=== PATIENT | male | born 1990 | race Caucasian/White ===

== ENCOUNTER 2016-03-02 17:09 | Emergency (ER) | payer OTHER ==
[~2016-03-02] VITALS: Ht 180.3 cm; Wt 70.8 kg
[2016-03-02 17:11] VITALS: TEMP 36.8; Ht 180.3 cm; Wt 70.8 kg
[2016-03-02] MEDS ORDERED: ONDANSETRON INJ 2 MG/ML 2 ML VIAL IV STA ×2 (17:25)
[2016-03-02] MEDS ORDERED: SODIUM CHLORIDE 0.9% 1000ML 1,000 ML IV STA ×2 (17:25)
[2016-03-02] MEDS ORDERED: KETOROLAC TROMETHAMINE 30 MG/ML VIAL IV STA (17:25)
[2016-03-02] MEDS ORDERED: PROCHLORPERAZINE 5 MG/ML 2 ML VIAL IV STA (17:25)
--- NOTE | 2016-03-02 17:28 | EMERGENCY ROOM VISIT NOTE ---
History Report prepared by Hannah: Pallavi Baez Under the Supervision of: Dr. Taisha Joy M.D. First contact with patient: 17:19 Chief Complaint: VOMITING Stated Complaint: VOMITING, SHAKES, DIZZY Nursing Triage Summary: Pt c/o "I just don't feel good, I think I have taken too much of something" Took two Hydrocodone 10mg/325 yesterday and and oxycodone/acet 10/300 at 0100. Pt states he went to sleep and "I've beel like this since I woke up. Uncontrollable puking, my urine is very orange and constant pressure in my head " Took meds for back pain. Not prescribed to him. History of Present Illness The patient is a 26 year old male who presents to the Emergency Room with complaints of multiple episodes of vomiting beginning this morning. He states that the episodes come on suddenly. The patient also experiences mild abdominal pain after an episode. He notes that he feels "spacey" and has a headache. The patient has chronic back pain and has taken hydrocodone and oxycodone yesterday and today. Source of History: patient Onset: this morning Position: other (global) Symptom Intensity: multiple Quality: other (vomiting) Timing: other (episodes) Associated Symptoms: + abdominal pain, + back pain, + headache Review of Systems See HPI for pertinent positives & negatives. A total of 10 systems reviewed and were otherwise negative. Past Medical & Surgical Medical Problems: (1) No known problems Family History Patient reports no known family medical history. Social History Smoking Status: Current Every Day Smoker Alcohol Use: occasionally Marital Status: in relationship Occupation Status: employed Current/Historical Medications Scheduled Ondasetron Odt (Zofran Odt), 4 MG SL Q6H Allergies Coded Allergies: No Known Allergies (Unverified , 03/02/16) Physical Exam Vital Signs Date Time Temp Pulse Resp B/P Pulse Ox O2 Delivery O2 Flow Rate FiO2 03/02/16 20:51 85 18 108/76 98 03/02/16 17:11 36.8 101 18 125/82 98 Room Air Physical Exam CONSTITUTIONAL: Mild to moderate distress, appears nauseous. HEENT: No icterus, moist mucous membranes NECK: No meningismus, trachea is midline. CARDIOVASCULAR: Regular rate, normal perfusion RESPIRATORY: Unlabored breathing. Clear to auscultation. GASTROINTESTINAL: Non-tender GENITOURINARY: No flank tenderness MUSCULOSKELETAL: Full range of motion NEUROLOGIC: No acute gross focal deficits. PSYCHIATRIC: Normal affect SKIN: Normal for ethnicity. Medical Decision & Procedures ER Provider Diagnostic Interpretation: CT results as stated below per my review and radiologist interpretation. CT HEAD WITHOUT CONTRAST (CT) CLINICAL HISTORY: nausea, VALLADARES COMPARISON STUDY: No previous studies for comparison. TECHNIQUE: Axial CT of the brain is performed from the vertex to the skull base. IV contrast was not administered for this examination. CT DOSE: 537.48 mGy.cm FINDINGS: No intra or extra-axial mass lesions are visualized. There is no CT evidence of acute cortical infarction. There is no evidence of midline shift. There is no acute hemorrhage. No calvarial fractures are visualized. There is no evidence of pathologic ventricular dilatation. There is no evidence of acute sinusitis IMPRESSION: Normal noncontrast head CT. Electronically signed by: Calvin Layton M.D. 03/02/2016 7:00 PM Dictated Date/Time: 03/02/2016 6:59 PM Laboratory Results 03/02/16 17:41 Red Blood Count 5.37, Mean Corpuscular Volume 84.7, Mean Corpuscular Hemoglobin 30.9, Mean Corpuscular Hemoglobin Concent 36.5, Mean Platelet Volume 10.1, Neutrophils (%) (Auto) 83.3, Lymphocytes (%) (Auto) 10.2, Monocytes (%) (Auto) 5.5, Eosinophils (%) (Auto) 0.6, Basophils (%) (Auto) 0.1, Neutrophils # (Auto) 11.79, Lymphocytes # (Auto) 1.44, Monocytes # (Auto) 0.78, Eosinophils # (Auto) 0.09, Basophils # (Auto) 0.02 03/02/16 17:41 Test 03/02/16 17:41 03/02/16 19:30 White Blood Count 14.16 K/uL (4.8-10.8) Red Blood Count 5.37 M/uL (4.7-6.1) Hemoglobin 16.6 g/dL (14.0-18.0) Hematocrit 45.5 % (42-52) Mean Corpuscular Volume 84.7 fL (80-100) Mean Corpuscular Hemoglobin 30.9 pg (25-34) Mean Corpuscular Hemoglobin Concent 36.5 g/dl (32-36) Platelet Count 232 K/uL (130-400) Mean Platelet Volume 10.1 fL (7.4-10.4) Neutrophils (%) (Auto) 83.3 % Lymphocytes (%) (Auto) 10.2 % Monocytes (%) (Auto) 5.5 % Eosinophils (%) (Auto) 0.6 % Basophils (%) (Auto) 0.1 % Neutrophils # (Auto) 11.79 K/uL (1.4-6.5) Lymphocytes # (Auto) 1.44 K/uL (1.2-3.4) Monocytes # (Auto) 0.78 K/uL (0.11-0.59) Eosinophils # (Auto) 0.09 K/uL (0-0.5) Basophils # (Auto) 0.02 K/uL (0-0.2) RDW Standard Deviation 39.2 fL (36.4-46.3) RDW Coefficient of Variation 12.8 % (11.5-14.5) Immature Granulocyte % (Auto) 0.3 % Immature Granulocyte # (Auto) 0.04 K/uL (0.00-0.02) Anion Gap 11.0 mmol/L (3-11) Est Creatinine Clear Calc Drug Dose 112.4 ml/min Estimated GFR () 121.1 Estimated GFR (Non- 104.5 BUN/Creatinine Ratio 12.4 (10-20) Calcium Level 9.3 mg/dl (8.5-10.1) Total Bilirubin 0.8 mg/dl (0.2-1) Direct Bilirubin 0.2 mg/dl (0-0.2) Aspartate Amino Transf (AST/SGOT) 15 U/L (15-37) Alanine Aminotransferase (ALT/SGPT) 20 U/L (12-78) Alkaline Phosphatase 67 U/L (45-117) Total Protein 7.9 gm/dl (6.4-8.2) Albumin 4.6 gm/dl (3.4-5.0) Lipase 74 U/L (73-393) Urine Color YELLOW Urine Appearance CLEAR (CLEAR) Urine pH >= 9.0 (4.5-7.5) Urine Specific [place] 1.013 (1.000-1.030) Urine Protein NEG (NEG) Urine Glucose (UA) NEG (NEG) Urine Ketones 1+ (NEG) Urine Occult Blood NEG (NEG) Urine Nitrite NEG (NEG) Urine Bilirubin NEG (NEG) Urine Urobilinogen NEG (NEG) Urine Leukocyte Esterase TRACE (NEG) Urine WBC (Auto) 1-5 /hpf (0-5) Urine RBC (Auto) 5-10 /hpf (0-4) Urine Hyaline Casts (Auto) 1-5 /lpf (0-5) Urine Epithelial Cells (Auto) 20-30 /lpf (0-5) Urine Bacteria (Auto) NEG (NEG) Urine Opiates Screen POS (NEG) Urine Methadone, Qualitative NEG (NEG) Urine Barbiturates NEG (NEG) Urine Phencyclidine (PCP) Level NEG (NEG) Ur Amphetamine/Methamphetamine NEG (NEG) MDMA (Ecstasy) Screen NEG (NEG) Urine Benzodiazepines Screen NEG (NEG) Urine Cocaine Metabolite NEG (NEG) Urine Marijuana (THC) POS (NEG) Labs reviewed by ED physician. Medications Administered Medications (Trade) Dose Ordered Sig/Terell Route Start Time Stop Time Status Last Admin Dose Admin Prochlorperazine Edisylate 10 mg 10 mg NOW STAT IV 03/02/16 17:25 03/02/16 17:29 DC 03/02/16 17:25 10 MG Sodium Chloride (Nss 1000ml) 1,000 ml @ 0 mls/hr Q0M STAT IV 03/02/16 17:25 03/02/16 17:29 DC 03/02/16 17:25 0 MLS/HR Ketorolac Tromethamine (Toradol Inj) 30 mg NOW STAT IV 03/02/16 17:25 03/02/16 17:30 DC 03/02/16 17:25 30 MG Ondansetron HCl 4 mg 4 mg NOW STAT IV 03/02/16 17:25 03/02/16 17:30 DC 03/02/16 17:25 4 MG Sodium Chloride (Nss 1000ml) 1,000 ml @ 0 mls/hr Q0M STAT IV 03/02/16 17:25 03/02/16 17:30 DC 03/02/16 17:25 0 MLS/HR Ondansetron HCl (ZOFRAN ODT 4MG Home Pack) 1 homepack UD ONCE PO 03/02/16 20:30 1/14/17 20:31 DC 03/02/16 20:30 1 HOMEPACK ED Course 172: Past medical records reviewed. The patient was evaluated in room C7. A complete history and physical examination was performed. 1725: Sodium Chloride 1,000 ml @ 0 mls/hr Wide Open IV, Zofran Inj 4 mg IV, Zofran Inj 4 mg IV, Toradol Inj 30 mg IV, Sodium Chloride 1,000 ml @ 0 mls/hr Wide Open IV, Compazine Inj 10 mg IV. 2030: Zofran ODT 4 mg Home Pack 1 homepack PO. 2032: Upon reexamination the patient is hemodynamically stable. I discussed results and treatment plan with the patient. He verbalizes agreement and understanding. The patient is ready for discharge. Medical Decision Differential diagnoses include but are not limited to; viral syndrome, intracranial abnormality. 18-year-old presents to the emergency room with several hours of vomiting and occasional crampy abdominal pain with feeling generally unwell. Abdomen was benign. Workup most consistent with viral syndrome or possibly withdrawal or substance abuse induced pathologies. Patient appeared well prior to discharge was given antiemetic perceptions. Impression Primary Impression: Vomiting Scribe Attestation The scribe's documentation has been prepared under my direction and personally reviewed by me in its entirety. I confirm that the note above accurately reflects all work, treatment, procedures, and medical decision making performed by me. Departure Information Dispostion Home / Self-Care Prescriptions Ondasetron Odt (ZOFRAN ODT) 4 Mg Tab 4 MG SL Q6H for Nausea, #20 TAB Prov: Taisha Joy MD 03/02/16 Referrals No Doctor, Assigned (PCP) Forms HOME CARE DOCUMENTATION FORM, IMPORTANT VISIT INFORMATION Patient Instructions My [facility], Vomiting - [facility]
[2016-03-02 18:00] LABS: BASO % 0.1 %; BASO ABS # 0.02 K/uL (0-0.2); COMPLETE YES; EOS % 0.6 %; HEMATOCRIT 45.5 % (42-52); IG% 0.3 %; LYMPH % 10.2 %; LYMPH ABS # 1.44 K/uL (1.2-3.4); MEAN CELL VOLUME 84.7 fL (80-100); MEAN CORPUSCULAR HEMOGLOBIN 30.9 pg (25-34); MEAN CORPUSCULAR HGB CONC 36.5 g/dl (32-36); MEAN PLATELET VOLUME 10.1 fL (7.4-10.4); MONO % 5.5 %; NEUT % 83.3 %; PLATELET COUNT 232 K/uL (130-400); RED BLOOD COUNT 5.37 M/uL (4.7-6.1); WHITE BLOOD COUNT 14.16 K/uL (4.8-10.8)
[2016-03-02 18:28] LABS: BUN/CREATININE RATIO 12.4 (10-20); CALCIUM 9.3 mg/dl (8.5-10.1); CREATININE 0.98 mg/dl (0.60-1.40); POTASSIUM 3.7 mmol/L (3.5-5.1)
--- NOTE | 2016-03-02 19:02 | DIAGNOSTIC IMAGING REPORT ---
CT HEAD WITHOUT CONTRAST (CT) CLINICAL HISTORY: nausea, VALLADARES COMPARISON STUDY: No previous studies for comparison. TECHNIQUE: Axial CT of the brain is performed from the vertex to the skull base. IV contrast was not administered for this examination. CT DOSE: 537.48 mGy.cm FINDINGS: No intra or extra-axial mass lesions are visualized. There is no CT evidence of acute cortical infarction. There is no evidence of midline shift. There is no acute hemorrhage. No calvarial fractures are visualized. There is no evidence of pathologic ventricular dilatation. There is no evidence of acute sinusitis IMPRESSION: Normal noncontrast head CT. Electronically signed by: Calvin Layton M.D. 03/02/2016 7:00 PM Dictated Date/Time: 03/02/2016 6:59 PM
[2016-03-02 19:59] LABS: URINE APPEARANCE CLEAR (CLEAR); URINE BILIRUBIN NEG (NEG); URINE COLOR YELLOW; URINE EPITHELIAL CELL AUTO 20-30 /lpf (0-5); URINE NITRITE NEG (NEG); URINE PH >= 9.0 (4.5-7.5); URINE SPECIFIC GRAVITY 1.013 (1.000-1.030); UROBILINOGEN NEG (NEG)
[2016-03-02 20:01] LABS: MANUAL MICROSCOPIC REQUIRED? NO; REVIEW REQ? NO
[2016-03-02 20:20] LABS: BENZODIAZEPINE, URINE NEG (NEG); COCAINE,URINE NEG (NEG); PHENCYCLIDINE, URINE NEG (NEG)
[2016-03-02] MEDS ORDERED: ONDA4TAB10 SL (20:29)
[2016-03-02] MEDS ORDERED: ONDANSETRON HOME PACK 4MG OD TAB PO ONE (20:30)
[2016-03-02 20:51] VITALS: BP 108/76; PULSE 85; O2SAT 98
[2016-03-06 12:07] LABS: COD UR 102 NG/ML (CUTOFF=50); HYDROCOD UR 173 NG/ML (CUTOFF=50); HYDROMOR UR 64 NG/ML (CUTOFF=50); MORPHINE UR 80 NG/ML (CUTOFF=50); NORHYDROCODONE CONF UR 1110 NG/ML (CUTOFF=50); OXYMORPH UR NEGATIVE NG/ML (CUTOFF=50)
== END 2016-03-02 20:54 | disposition home or self-care (01) ==
LOC: C.EDB 17:10 → C.EDC 20:54
DX: R11.10 Vomiting, unspecified (principal); F17.200 Nicotine dependence, unspecified, uncomplicated